=== PATIENT | male | born 1975 | race Caucasian/White ===

== ENCOUNTER → 2017-09-24 | Outpatient (CLI) | payer OTHER ==
[~2017-09-24] MED LIST: /QUET10TA; LAMI25TA; PAXI20TA
--- NOTE | 2017-10-02 21:19 | SLEEPHOME ---
DATE OF PROCEDURE: 09/24/2017 REFERRING PHYSICIAN: June Rosario INTERPRETATION: Diagnostic home sleep testing was performed for evaluation of patterning consistent with the obstructive sleep apnea syndrome in this patient with a prior history of sleep apnea who has accomplished significant weight loss. For testing a NOX-T3 respiratory monitoring device was used. Continuous record was made of pulse, oxygen saturation, airflow, chest and abdominal strain and body position. 10 hours and 59 minutes of data were reviewed. There were 8 hours and 25 minutes marked as time in bed. During the interval marked time in bed, there were only 34 respiratory events identified of 10 seconds in duration or greater for a respiratory event index of 4. Baseline pulse rate was 67. Pulse rate ranged 53 to 58. Baseline saturation was 91%. Desaturations were recorded, however, on close inspection these are felt to be artifactual. Testing was performed in both the supine and nonsupine positions. Respiratory events were more frequently seen in the supine position. IMPRESSION: Borderline diagnostic home sleep testing with some respiratory patterning and a respiratory event index of 4. RECOMMENDATION: As the events were more frequently associated with supine position, sleep position retraining for avoidance of the supine position is recommended. If sleep symptoms persist, retesting may be helpful.
== END ==
LOC: M SLEEP HO 13:52
PROVIDERS: ATTEND Nurse Practitioner Adult Health
DX: G47.30 Sleep apnea, unspecified (principal)

== ENCOUNTER → 2020-09-01 | Outpatient (CLI) | payer OTHER ==
[~2020-09-01] MED LIST changes: -/QUET10TA; +SERO1TAB
--- NOTE | 2020-09-01 12:11 | REP ---
INDICATION: SPONDYLOSIS LUMBAR REGION. COMPARISON: None. FINDINGS: Lumbar vertebral body heights are preserved and alignment is normal. Cortical and medullary bone signal intensity are normal. The tip of the conus medullaris is normal in position and appearance at L1. There is no evidence of spondylolysis or spondylolisthesis. There is degenerative disc narrowing and desiccation at L3-4, L4-5, and L5-S1. This is most pronounced at the 5 1 levels. Axial and sagittal images taken at L5-S1 demonstrate diffuse central disc bulging and early osteophytic ridging. This indents the ventral margin of the thecal sac. There is mild facet hypertrophy breast present bilaterally at L5-S1, more prominent on the right. No spinal stenosis or foraminal narrowing is seen however. At L4-5, there is mild central disc bulging subtly indenting the ventral margin of the thecal sac. Mild facet hypertrophy is present. No focal disc protrusion is seen. No foraminal narrowing or spinal stenosis seen. At L3-4 and the posterior disc margin is intact. Minimal facet hypertrophy is present. IMPRESSION: Degenerative disc and facet changes at L3-4 through L5-S1 most pronounced at L5-S1. Diffuse disc bulging at L5-S1 and L4-5.. <Electronically signed by Preston Reynolds > 09/01/20 [id number]
== END | disposition home or self-care (01) ==
LOC: M RAD 10:38
PROVIDERS: ATTEND Orthopaedic Surgery
DX: M51.37 Other intervertebral disc degeneration, lumbosacral region (principal); M47.896 Other spondylosis, lumbar region

== ENCOUNTER → 2020-09-27 | Outpatient (CLI) | payer OTHER ==
[2020-09-27 13:16] LABS: PLATELET COUNT, AUTOMATED 342 10^3/uL (150-450)
[2020-09-27 13:17] LABS: COLLAGEN EPINEPHRINE 101 SECONDS (74-162)
[2020-09-27 13:27] LABS: INR 0.92; PROTHROMBIN TIME 12.6 SECONDS (12.5-14.3)
[2020-09-27 13:28] LABS: PARTIAL THROMBOPLASTIN TIME 24.4 SECONDS (24.2-38.5)
== END ==
LOC: M LAB 12:21
PROVIDERS: ATTEND Physical Medicine & Rehabilitation
DX: M47.896 Other spondylosis, lumbar region (principal)

== ENCOUNTER → 2020-10-27 | Outpatient (CLI) | payer OTHER | LOC: M LABSMTC 10:46 | PROVIDERS: ATTEND Physical Medicine & Rehabilitation | DX: Z01.812 Encounter for preprocedural laboratory examination (principal); Z20.828 Contact with and (suspected) exposure to other viral communicable diseases ==

== ENCOUNTER → 2021-05-11 | Outpatient (CLI) | payer OTHER, MEDICAID ==
[2021-05-11 13:07] LABS: COLLAGEN EPINEPHRINE 132 SECONDS (74-162)
== END ==
LOC: M LAB 10:08
PROVIDERS: ATTEND Physician Assistant
DX: M47.897 Other spondylosis, lumbosacral region (principal)

== ENCOUNTER → 2021-06-09 | Outpatient (CLI) | payer OTHER, MEDICAID ==
[2021-06-09 19:06] LABS: PLATELET COUNT, AUTOMATED 264 10^3/uL (150-450)
[2021-06-09 19:18] LABS: INR 0.96; PROTHROMBIN TIME 13.2 SECONDS (12.7-14.5)
== END ==
LOC: M LAB 18:30
PROVIDERS: ATTEND Physician Assistant
DX: Z01.812 Encounter for preprocedural laboratory examination (principal)